=== PATIENT | female | born 1985 | race Caucasian/White ===

== ENCOUNTER 2023-05-16 09:15 | Outpatient (AMB) | payer OTHER, SELFPAY ==
--- NOTE | 2023-05-16 09:49 | MHC.OFFWIV ---
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 Took at home covid test which was negative. Patient Tobacco Use Status: Never used Tobacco Allergies No Known Allergies Allergy (Verified 05/16/23 09:51) Do you need a note to return to daycare/school/sports/work: Yes HPI HPI Comments History of Present Illness Details This is a 38-year-old female with no stated past medical history presenting for evaluation of a cough and chest congestion that she has had for the past 9 days. Patient reports subjective fevers however has not taken any antipyretic medication or other [id number] medication for treatment of her symptoms. Patient denies having any ear pain, sore throat, difficulty swallowing or shortness and breath. Patient reports a yellow-greenish sputum occasionally. Patient took a test for COVID-19 last week which was negative. [facility] Social History Patient Tobacco Use Status: Never used Tobacco Review of Systems Const Reports no additional complaints, Denies body aches, Denies chills and Reports fever(s) (subjective) Eyes Reports no additional complaints ENT Reports no additional complaints, Denies otalgia, Denies sinus pressure and Denies sore throat Card Reports no additional complaints and Denies dyspnea Resp Reports no additional complaints, Reports cough, Denies hemoptysis, Denies pain with cough, Denies dyspnea and Denies wheezing GI Reports no additional complaints Reports no additional complaints Musc Reports no additional complaints Skin/Breast Reports system reviewed and no additional complaints, except as documented Psych Reports no additional complaints Aller/Immun Denies wheezing Physical Exam Vital Signs: Last Vital Signs Temp 97.7 F 05/16/23 09:59 Pulse 79 05/16/23 09:59 BP 118/76 05/16/23 09:59 Pulse Ox 97 05/16/23 09:59 Oxygen Delivery Method Room Air 05/16/23 09:59 afebrile Const General: cooperative, healthy appearing, comfortable and no acute distress Nutritional Appearance: average body habitus Orientation/consciousness: patient oriented x3 Limitations: no limitations HEENT Head: Yes normal to inspection Ears: hearing grossly normal bilaterally, external ears normal, TM's normal bilaterally and EAC's normal General nose exam: Normal external nose present Face and sinus: Yes normal facial exam Mouth: Normal oral and palatal mucosa present Throat: Yes postnasal drainage Eyes Eyelids: Yes eyelids normal Conjunctivae: conjunctivae normal Sclerae: sclerae normal Corneas: corneas normal Pupils: Equal, round and reactive pupils present EOM: EOMs intact bilaterally Neck Lymphatic: no lymphadenopathy noted Resp Effort & Inspection: normal respiratory effort, able to speak in complete sentences, no audible wheezes, Actively coughing and respiratory effort not decreased Auscultation: wheezes expiratory wheezes (right base) Cardio Rate: regular rate Rhythm: regular rhythm Skin General skin exam: no rashes or lesions noted Neuro General: patient oriented x3 Cranial nerves: Yes Equal, round and reactive pupils present Psych Appearance: grossly normal Mental Status: mental status grossly normal Insight: Good insight present (Psych) Judgement: Good judgement present (Psych) Results Reviewed Results Reviewed: CXR negative - reviewed with patient. Assessment & Plan Assessment & Plan (1) Cough: Comment: CXR without acute findings. Code(s): R05.9 - Cough, unspecified Qualifiers: Cough type: acute Qualified Code(s): R05.1 - Acute cough Plan: Mucinex OTC with increased clear fluids daily. Orders: Orders XR chest 2V Today R05.9 - Cough, unspecified Coding Level of Care Code New Pt Level 3 (23046) Diagnoses Acute cough R05.1 Cough type: acute Time Spent (min) 20
[2023-05-16 09:59] VITALS: BP 118/76; PULSE 79; TEMP 36.5; O2SAT 97
== END 2023-05-16 11:05 | disposition home or self-care (01) ==
PROVIDERS: PCP Internal Medicine; Visit Provider Physician Assistant
DX: R05.1 Acute cough (principal)
CPT/HCPCS: 99203

== ENCOUNTER 2023-05-16 10:12 | Outpatient (REF) | payer OTHER, SELFPAY ==
--- NOTE | ~2023-05-16 | XR_ITS ---
EXAMINATION: XR CHEST CLINICAL INFORMATION: Cough COMPARISON: None available. TECHNIQUE: 2 views of the chest were obtained. FINDINGS: No significant abnormality is noted involving the heart, lungs, mediastinum, bony thorax or soft tissues. XR/XR chest 2V IMPRESSION: Unremarkable examination.
== END 2023-05-16 10:13 | disposition home or self-care (01) ==
LOC: HO.HMGCX 10:12
PROVIDERS: PCP Internal Medicine; Visit Provider Physician Assistant
DX: R05.9 Cough, unspecified (principal)
CPT/HCPCS: 71046